=== PATIENT | female | born 2000 | race Caucasian/White ===

== ENCOUNTER 2018-09-01 09:21 | Emergency (ER) | payer BC ==
[2018-09-01] MEDS ORDERED: ONDANSETRON 4 MG/2 ML VIAL IVP ONE (09:31)
[2018-09-01] MEDS ORDERED: NS 1,000 ML IV ONE (09:31)
--- NOTE | 2018-09-01 09:46 | EDPHY ---
HPI/HX/ROS/PE/MDM Narrative: CHIEF COMPLAINT: Weakness, shakiness HPI: This patient is a 18-year-old female with history of ulcerative colitis. She presents with weakness, shakiness, and nausea. She endorses heavier than usual alcohol consumption yesterday including rum, tequila, and champagne. This morning she woke feeling worse than she ever has before with a hangover. She felt like she might have a seizure and called her mother, who recommended she present here to the emergency department for evaluation. She denies any history of seizure. She has vomited several times. She is currently feeing somewhat better and was able to drink Pedialyte. She denies chest pain, syncope, diarrhea , hematemesis, or other associated symptoms. She denies any recent trauma. REVIEW OF SYSTEMS: A comprehensive 10 system review of systems is otherwise negative aside from elements mentioned in the history of present illness and medical decision making. PMH: Ulcerative colitis SOCIAL HISTORY: Student at [employer]. Single. Originally from [place]. PHYSICAL EXAM: General:Patient is alert, in no acute distress. ENT:Eyes are normal to inspection. ENT inspection normal. Neck: Normal inspection. Full range of motion. Respiratory:No respiratory distress. Breath sounds normal bilaterally. Cardiovascular: Regular rate and rhythm. Strong peripheral pulses. Normal cap refill. Abdomen:The abdomen is nontender to palpation. There are no peritoneal signs. There are normal bowel sounds. Back: Normal to inspection. No tenderness to palpation. Skin: Normal color. No rash. Warm and dry. Extremities: Normal appearance. Full range of motion. Neuro: Oriented x3. Normal motor function. Normal sensory function. ED Course: 18 y/o female presents with weakness, shakiness, and nausea. She admits to alcohol consumption yesterday. She is currently feeling better and has tolerated PO Pedialyte. Plan for labs including CBC, chemistries, BHCG. Plan to administer 1L IV NS and 4mg IV Zofran for symptom relief. Laboratory studies are completely unremarkable. Patient is feeling better following fluid/Zofran administration. Patient is still feeling well and has tolerated PO challenge. Plan to discharge home in good condition. Follow up and return precautions discussed. The patient is comfortable with this plan. - Data Points Laboratory Results: Laboratory Results 09/01/18 09:40 09/01/18 09:40 09/01/18 09/01/18 09/01/18 09:40 09:40 09:40 WBC 9.63 10^3/uL H 10^3/uL (3.80-9.50) RBC 4.80 10^6/uL 10^6/uL (4.18-5.33) Hgb 14.8 g/dL g/dL (12.6-16.3) Hct 43.8 % % (38.0-47.0) MCV 91.3 fL fL (81.5-99.8) MCH 30.8 pg pg (27.9-34.1) MCHC 33.8 g/dL g/dL (32.4-36.7) RDW 12.5 % % (11.5-15.2) Plt Count 247 10^3/uL 10^3/uL (150-400) MPV 9.8 fL fL (8.7-11.7) Neut % (Auto) 70.9 % % (39.3-74.2) Lymph % (Auto) 22.2 % % (15.0-45.0) Craig % (Auto) 6.0 % % (4.5-13.0) Eos % (Auto) 0.2 % L % (0.6-7.6) Baso % (Auto) 0.5 % % (0.3-1.7) Nucleat RBC Rel Count 0.0 % % (0.0-0.2) Absolute Neuts (auto) 6.82 10^3/uL H 10^3/uL (1.70-6.50) Absolute Lymphs (auto) 2.14 10^3/uL 10^3/uL (1.00-3.00) Absolute Monos (auto) 0.58 10^3/uL 10^3/uL (0.30-0.80) Absolute Eos (auto) 0.02 10^3/uL L 10^3/uL (0.03-0.40) Absolute Basos (auto) 0.05 10^3/uL 10^3/uL (0.02-0.10) Absolute Nucleated RBC 0.00 10^3/uL 10^3/uL (0-0.01) Immature Gran % 0.2 % % (0.0-1.1) Immature Gran # 0.02 10^3/uL 10^3/uL (0.00-0.10) Sodium 139 mEq/L mEq/L (135-145) Potassium 4.3 mEq/L mEq/L (3.5-5.2) Chloride 104 mEq/L mEq/L (97-110) Carbon Dioxide 22 mEq/l mEq/l (22-31) Anion Gap 13 mEq/L mEq/L (6-14) BUN 15 mg/dL mg/dL (7-23) Creatinine 0.8 mg/dL mg/dL (0.6-1.0) Estimated GFR > 60 Glucose 81 mg/dL mg/dL (70-100) Calcium 10.1 mg/dL mg/dL (8.5-10.4) Beta HCG, Qual NEGATIVE Medications Given: Discontinued Medications Sodium Chloride (Ns) 1,000 mls @ 0 mls/hr IV EDNOW ONE; Wide Open PRN Reason: Protocol Stop: 09/01/18 09:32 Last Admin: 09/01/18 09:39 Dose: 1,000 mls Ondansetron HCl (Zofran) 4 mg IVP EDNOW ONE Stop: 09/01/18 09:32 Last Admin: 09/01/18 09:39 Dose: 4 mg General Time Seen by Provider: 09/01/18 09:30 Initial Vital Signs: Initial Vital Signs Temperature (C) 36.7 C 09/01/18 09:24 Heart Rate 69 09/01/18 09:24 Respiratory Rate 18 09/01/18 09:24 Blood Pressure 116/80 09/01/18 09:24 O2 Sat (%) 98 09/01/18 09:24 O2 Delivery Mode Room Air Allergies/Adverse Reactions: No Known Allergies Allergy (Unverified 09/01/18 09:23) Home Medications: Medication Instructions Recorded [place] 09/01/18 [place] 09/01/18 Departure - Departure Disposition: Home, Routine, Self-Care Clinical Impression: Nausea & vomiting Qualifiers: Vomiting type: unspecified Vomiting Intractability: non-intractable Qualified Code(s): R11.2 - Nausea with vomiting, unspecified Condition: Good Instructions: Acute Nausea and Vomiting (ED) Additional Instructions: Please avoid heavy alcohol consumption. Stay well hydrated. Return to the emergency department immediately for fever, vomiting, confusion, headache, abdominal pain or other worsening of condition. Follow-up with your primary care physician within 2-3 for reevaluation if symptoms persist. Referrals: [facility],. [Clinic] - As per Instructions Report Scribed for: Shreyas Patel Report Scribed by: Hannah Granda Date of Report: 09/01/18 Time of Report: 09:46 Physician Review and Approval Statement: Portions of this note were transcribed by an ED scribe. I personally performed the history, physical exam, and medical decision making; and confirm the accuracy of the information in the transcribed note.
[2018-09-01 09:50] LABS: PLATELET COUNT 247 10^3/uL (150-400)
[2018-09-01 10:19] VITALS: BP 121/74
== END 2018-09-01 10:46 | disposition home or self-care (01) ==
DX: R11.2 Nausea with vomiting, unspecified (principal); R53.1 Weakness; E86.9 Volume depletion, unspecified
CPT/HCPCS: 96374; J2405